=== PATIENT | female | born 1980 | race Caucasian/White ===

== ENCOUNTER 2018-09-01 16:27 | Emergency (ER) | payer OTHER ==
[2018-09-01 16:56] VITALS: BMI 39.6
[2018-09-01] MEDS ORDERED: ALBUTEROL SO4 2.5/IPRATROPIUM 0.5 INH SOL 3 ML VIAL.NEB. NEB ONE ×2 (18:39→18:50)
--- NOTE | 2018-09-01 18:49 | PDOC ---
History of Present Illness - General Chief Complaint: Shortness of Breath Stated Complaint: SOB Time Seen by Provider: 09/01/18 18:39 History Source: Patient Exam Limitations: No Limitations - History of Present Illness Initial Comments: HPI: 38 y/o female presenting to [facility] ER complaining of shortness of breath and coughing for the past several weeks. Symptoms have worsened over the past week. Endorses post emesis vomiting and clear sputum production. Denies fevers, chills , or diaphoresis. Daughter was diagnosed with the flu by PCPs office two weeks ago. Pt was given a Zpack by PCP because of this cough and her daughters positive flu. Pt expressed concern about her symptoms because her sister suddenly and unexpectedly a few months ago. Cause is unknown. No other family members have under similar circumstances. PCP: Dr. Marlo Weber Hx: - Former smoker, stopped 9 weeks ago Medical Hx: - Obesity Past History - Past Medical History Allergies/Adverse Reactions: Allergies Allergy/AdvReac Type Severity Reaction Status Date / Time No Known Allergies Allergy Verified 04/09/13 00:06 Home Medications: Ambulatory Orders No Home Medications 0 dose .ROUTE UTDICT 04/09/13 Albuterol Sulfate Inhaler - [Ventolin Hfa Inhaler -] 1 - 2 inh PO Q4H PRN #1 inhaler 09/01/18 COPD: No - Immunization History Immunization Up to Date: Yes - Suicide/Smoking/Psychosocial Hx Smoking Status: No Smoking History: Never smoked Hx Alcohol Use: No Drug/Substance Use Hx: No Review of Systems - Review of Systems Able to Perform ROS?: Yes Comments:: In addition to that documented in the HPI above, the additional ROS was obtained : Constitutional: Denies fevers or chills ENMT: Denies sore throat CV: Denies chest pain Resp: Per HPI GI: Denies diarrhea : Denies dysuria, hematuria, or discharge *Physical Exam - Vital Signs Last Vital Signs Temp Pulse Resp BP Pulse Ox 98.1 F 97 H 16 122/59 L 96 09/01/18 16:53 09/01/18 16:53 09/01/18 16:53 09/01/18 16:53 09/01/18 16:53 - Physical Exam Comments: Constitutional: Well-developed, well-nourished female in no acute distress or obvious discomfort. Obese body habitus. Found sitting upright on edge of hospital bed. Alert and oriented x4. Answered all questions appropriately and completely. Speech was non-labored, non-pressured. Head: Normocephalic. No obvious external signs of trauma. Eyes: Sclerae white. Ears: Hearing grossly intact. Nose: No nasal discharge. Neck: Supple, trachea is midline. Cardiovascular / Chest: Regular rate and regular rhythm. No murmur, rubs, clicks, or gallops. Peripheral pulses: radial pulses full. Respiratory: Mildly tachypneic but unlabored. Speaking in multi-word responses without pausing. Equal chest rise and fall. Trace wheeze versus upper airway/ crying. No stridor or rhonchi. Gastrointestinal: abdomen is soft, non-tender, non-distended. Neuro: Alert and oriented. Moving all four extremities spontaneously. Skin: Warm, dry, and intact. Psych: Tearful with downward gaze. Moderate Sedation - Procedure Monitoring Vital Signs: Procedure Monitoring Vital Signs Temperature 98.1 F 09/01/18 16:53 Pulse Rate 97 H 09/01/18 16:53 Respiratory Rate 16 09/01/18 16:53 Blood Pressure 122/59 L 09/01/18 16:53 O2 Sat by Pulse Oximetry (%) 96 09/01/18 16:53 ED Treatment Course - LABORATORY CBC & Chemistry Diagram: 09/01/18 19:47 09/01/18 18:49 Medical Decision Making - Medical Decision Making *Reviewed vital signs, nursing notes, and prior visit documentation (if available). 38 y/o female complaining of SOB and chest pain. Daughter diagnosed with flu. Both parent and child are fully vaccinated but did not get flu vaccines this year. Afebrile. Vitals unremarkable for hypotension or tachycardia. Normoxic on room air. Suspect viral URI with overlying anxiety. Low suspicion for asthma exacerbation as pt does not have a h/o of asthma. Low suspicion for ACS. Will obtain EKG, CBC, BMP, Troponin, and CXR. Given DuoNeb x1 then followed with IH saline. EKG: Sinus rhythm with a ventricular rate of 93 bpm. Normal axis. Normal intervals. No ST segment elevation or depression. No hyperacute T waves. No pathologic Q waves. CXR unremarkable for acute cardiopulmonary process per ED wet read. Radiology report pending. CBC revealed very mild leukocytosis without left shift. Suspect reactionary versus viral infection. BMP unremarkable for electrolyte derangement. eGFR >60. Initial troponin not elevated. Low suspicion for ACS. Pt reassessed. Reports feeling much better. No longer tearful. No wheezing on auscultation. Low suspicion for asthma but will prescribe Ventolin PRN. Also encouraged pt to consider purchasing a humidifier. Discussed imaging and laboratory results with pt. Answered all questions. Provided return precautions. Pt expressed verbal understanding and agreement with plan to discharge home with outpatient follow up. *DC/Admit/Observation/Transfer Diagnosis at time of Disposition: Shortness of breath, Coughing - Discharge Dispostion Disposition: HOME Condition at time of disposition: Good Decision to Admit order: No - Prescriptions Prescriptions: Albuterol Sulfate Inhaler - [Ventolin Hfa Inhaler -] 1 - 2 inh PO Q4H PRN #1 inhaler PRN Reason: Wheezing - Referrals Referrals: Hero Sellers MD [Primary Care Provider] - - Patient Instructions Printed Discharge Instructions: DI for Viral Upper Respiratory Infection -- Adult Additional Instructions: You were seen today for coughing, shortness of breath, and chest pain. Your EKG , chest xray, and blood work were normal today. Your symptoms are likely a combination of a viral upper respiratory infection worsened by anxiety and stress. I have sent a prescription for Albuterol to your pharmacy. Take as directed on the package. Do not take more than the recommended dose. Follow up with your primary care doctor within the next 3-4 days. You will need to call to make an appointment. The number is included in this packet. A copy of todays results are attached to this packet. Take it to the appointment so your doctor can review them. Go to the nearest emergency department if your condition worsens or you feel like you need additional emergency evaluation. Print Language: AMHARIC - Post Discharge Activity Forms/Work/School Notes: Back to Work
--- NOTE | 2018-09-01 18:54 | PDOC ---
Attending Attestation - Resident Resident Name: BishopEsa - ED Attending Attestation I have performed the following: I have examined & evaluated the patient, The case was reviewed & discussed with the resident, I agree w/resident's findings & plan, Exceptions are as noted - HPI HPI: 09/01/18 20:18 38-year-old female with no past medical history presents with chest tightness. Approximately 3 weeks ago, patient had a positive sick contact with her daughter having influenza. Patient reports to me that she called her doctor for upper respiratory infection symptoms and was prescribed azithromycin, not Tamiflu. The patient reported taking her antibiotics check resulted in gastritis but reported no improvement of her upper respiratory infection symptoms. Since then, the patient has been having intermittent chest tightness and the ultimate. She still plains of chest congestion, productive cough. States that the symptoms have persisted. Because of this, the patient can the ER. Denies any family history of sudden or cardiac disease. Patient has a intermittent smoking history that she recently stopped. - Physicial Exam PE: 09/01/18 20:24 GENERAL: Awake, alert, and fully oriented, in no acute distress HEAD: No signs of trauma EYES: EOMI, sclera anicteric, conjunctiva clear ENT: Auricles normal inspection, hearing grossly normal, nares patent, Moist mucosa NECK: Normal ROM, supple LUNGS: Breath sounds equal, clear to auscultation bilaterally. No wheezes, and no crackles HEART: Regular rate and rhythm, normal S1 and S2, no murmurs, rubs or gallops ABDOMEN: Soft, nontender, No guarding, no rebound. No masses EXTREMITIES: Normal range of motion, no edema. No clubbing or cyanosis. No cords, erythema, or tenderness NEUROLOGICAL: Cranial nerves II through XII grossly intact. Normal speech SKIN: Warm, Dry, normal turgor, no rashes or lesions noted. - Medical Decision Making 09/01/18 20:25 Vital Signs Temp Pulse Resp BP Pulse Ox 98.1 F 97 H 16 122/59 L 96 09/01/18 16:53 09/01/18 16:53 09/01/18 16:53 09/01/18 16:53 09/01/18 16:53 The patient's chest tightness and URI symptoms is likely persistence of her viral syndrome/influenza. I have low suspicion for ACS. Will however send one troponin. ECG is reassuring. Pt reports that saline nebulizers here helped tremendously. If lab workup including troponin is negative, pt can be d/c with supportive care 09/01/18 20:35 Chest xray reviewed by me, pending official radiology read. No acute findings. Heart Score/ECG Review #1 ECG reviewed & interpreted by me at: 16:40 09/01/18 18:53 NSR 93, no std/karla, normal axis, normal intervals, QTC 412 msec
[2018-09-01] MEDS ORDERED: SODIUM CHLORIDE FOR INHALATION 3 ML VIAL.NEB IH ONE (19:53)
[2018-09-01 20:27] LABS: ANION GAP 8 MMOL/L (8-16); BLOOD UREA NITROGEN 10 mg/dL (7-18); CALCIUM 8.5 mg/dL (8.5-10.1); CHLORIDE 105 mmol/L (98-107); CO2 24 mmol/L (21-32); CREATININE 0.8 mg/dL (0.55-1.3); GLUCOSE,RANDOM 104 mg/dL (74-106); POTASSIUM 4.3 mmol/L (3.5-5.1); SODIUM 137 mmol/L (136-145)
[2018-09-01 20:28] LABS: BASO % 0.4 % (0-2.0); EOS % 3.7 % (0-4.5); HEMATOCRIT 41.4 % (32.4-45.2); HEMOGLOBIN 13.9 GM/dL (10.7-15.3); LYMPH % 21.4 % (8-40); MCH 26.9 pg (25.7-33.7); MCHC 33.6 g/dl (32.0-36.0); MEAN CELL VOLUME 80.2 fl (80-96); MEAN PLT VOLUME 9.5 fl (7.5-11.1); MONO % 4.7 % (3.8-10.2); NEUT % 69.8 % (42.8-82.8); PLATELET COUNT 254 K/MM3 (134-434); RBC 5.16 M/mm3 (3.60-5.2); WHITE BLOOD COUNT 13.3 K/mm3 (4.0-10.0)
[2018-09-01 21:59] VITALS: BP 121/78; PULSE 101; TEMP 98.2
--- NOTE | 2018-09-04 11:01 | EKG ---
Test Reason : Blood Pressure : / mmHG Vent. Rate : 093 BPM Atrial Rate : 093 BPM P-R Int : 128 ms QRS Dur : 078 ms QT Int : 332 ms P-R-T Axes : 057 086 051 degrees QTc Int : 412 ms NORMAL SINUS RHYTHM NORMAL ECG NO PREVIOUS ECGS AVAILABLE Confirmed by PATIENCE SILVERIO MD ([id number]) on 09/04/2018 11:01:25 AM Referred By: Confirmed By:PATIENCE SILVERIO MD
== END 2018-09-01 21:59 | disposition home or self-care (01) ==
LOC: JER 16:27
PROC: 3E0F7GC Introduction of Other Therapeutic Substance into Respiratory Tract, Via Natural or Artificial Opening (ICD-10-PCS; principal; 2018-09-01)
PROC: 3E0F7GC Introduction of Other Therapeutic Substance into Respiratory Tract, Via Natural or Artificial Opening (ICD-10-PCS; 2018-09-01)
DX: J06.9 Acute upper respiratory infection, unspecified (principal); B97.89 Other viral agents as the cause of diseases classified elsewhere
CPT/HCPCS: 36415; 71046-TC-FY; 80048; 84484; 84703; 85025; 93005; 93010; 99282-25

== ENCOUNTER 2019-08-16 01:21 | Inpatient (IN) | payer OTHER ==
[2019-08-16] MEDS ORDERED: MAGNESIUM SULF 50% (8.12 MEQ/2 ML-1 GM VIAL) IVPB ONE (01:51)
[2019-08-16] MEDS ORDERED: ALBUTEROL SO4 2.5/IPRATROPIUM 0.5 INH SOL 3 ML VIAL.NEB. NEB ONE ×5 (01:51→15:11)
[2019-08-16] MEDS ORDERED: methylPREDNISolone NA SUCC 125 MG/2 ML VIAL IVPUSH ONE (01:51)
[2019-08-16 01:52] VITALS: BMI 49.4
--- NOTE | 2019-08-16 01:52 | PDOC ---
History of Present Illness - General Chief Complaint: Shortness of Breath Stated Complaint: DIFFICULTY BREATHING Time Seen by Provider: 08/16/19 01:49 - History of Present Illness Initial Comments: 08/16/19 03:20 The patient is a 39 year old female with a history of asthma who presents for evaluation of shortness of breath. The patient reports a several day history of worsening shortness of breath and wheezing not relieved by home albuterol treatments prompting her presentation to the ED for further evaluation. She notes chest tightness as well and reports having a similar presentation 1 year ago. She denies any prior hospitalizations, steroid use, or intubations. She otherwise denies fevers, chills, nausea, vomiting, abdominal pain, or changes with urination or bowel movements. Past History - Past Medical History Allergies/Adverse Reactions: Allergies Allergy/AdvReac Type Severity Reaction Status Date / Time No Known Allergies Allergy Verified 08/16/19 01:52 Home Medications: Ambulatory Orders Albuterol Sulfate Inhaler - [Ventolin Hfa Inhaler -] 1 - 2 inh PO Q4H PRN #1 inhaler 09/01/18 COPD: No - Immunization History Immunization Up to Date: Yes - Psycho Social/Smoking Cessation Hx Smoking Status: No Smoking History: Never smoked Hx Alcohol Use: Yes Drug/Substance Use Hx: No Review of Systems - Review of Systems Comments:: 08/16/19 03:23 Constitutional: No fevers, chills, fatigue, malaise HEENT: No Rhinorrhea, nasal congestion, visual changes Cardiovascular: No chest pain, syncope, palpitations, lightheadedness Respiratory: Cough, SOB, No Hemoptysis, Gastrointestinal: No Abdominal pain, Nausea, Vomiting, Constipation, Diarrhea, Melena Genitourinary: No Dysuria, Frequency, Urgency, Hesitancy, Hematuria, Flank pain Musculoskeletal: No Myalgia, arthralgia Skin: No rashes, itching, bruising, pallor Neurologic: No Headache, Dizziness, Numbness, Weakness, or Tingling Psychiatric: No Hallucinations. No SI or HI *Physical Exam - Vital Signs Last Vital Signs Temp Pulse Resp BP Pulse Ox 98.0 F 103 H 24 H 132/75 92 L 08/16/19 01:25 08/16/19 01:25 08/16/19 01:25 08/16/19 01:25 08/16/19 01:25 - Physical Exam 08/16/19 03:24 General Appearance: Nourished. No Apparent Distress HEENT: EOMI, MENDY. No Pharyngeal Erythema, Tonsillar Exudate, Tonsillar Erythema Neck: No Cervical Lymphadenopathy Respiratory/Chest: Diffuse expiratory wheezing with poor air movement and prolonged expiration noted on exam. No Crackles, Rales, Rhonchi, Cardiovascular: Regular Rhythm, Regular Rate. No Murmur, Gallops, Rubs Gastrointestinal/Abdominal: Normal Bowel Sounds, Soft. No Guarding, Rebound, Tenderness Musculoskeletal: No CVA Tenderness Extremity: Normal Capillary Refill Integumentary: Normal Color, Dry, Warm Neurologic: Fully Oriented, Alert, Normal Mood/Affect, Normal Response, Heart Score/ECG Review #1 ECG reviewed & interpreted by me at: 03:24 08/16/19 03:24 HR 72 NH 126 QRS 84 QTc 413 Normal Sinus Rhythm No Acute ST Changes ED Treatment Course - LABORATORY CBC & Chemistry Diagram: 08/16/19 01:54 08/16/19 01:54 - RADIOLOGY Radiology Studies Ordered: Category Date Time Status CHEST X-RAY PORTABLE* [RAD] Stat Radiology 08/16/19 01:50 Ordered Medical Decision Making - Medical Decision Making 08/16/19 03:25 The patient is a 39 year old female with a history of asthma who presents for evaluation of shortness of breath. Given the patient's history and physical exam, it is likely the patient's symptoms are due to a severe asthma exacerbation. We will obtain a cbc, cmp, troponin, ekg, chest plain film to evaluate further. We will treat with duonebs, solumedrol, and magnesium and continue to monitor and reassess while here in the ED. 08/16/19 04:05 CBC demonstrates a wbc to 13. CMP, troponin were unremarkable. Chest plain film did not demonstrate any acute pathology. The patient reports mild improvement in her symptoms but continues to remain symptomatic with significant wheezing on exam. She will require admission for further monitoring and management. Discharge - Discharge Information Problems reviewed: Yes Clinical Impression/Diagnosis: Shortness of breath, Coughing Condition: Fair - Admission Yes - Follow up/Referral - Patient Discharge Instructions - Post Discharge Activity
[2019-08-16] MEDS ORDERED: methylPREDNISolone NA SUCC 125 MG/2 ML VIAL ONE (01:57)
[2019-08-16] MEDS ORDERED: MAGNESIUM 1GM/D5W - 2 GM/200 ML IVPB IVPB ONE (01:57)
[2019-08-16 02:23] LABS: BASO % 1.1 % (0-2.0); EOS % 6.7 % (0-4.5); HEMOGLOBIN 12.6 GM/dL (10.7-15.3); LYMPH % 24.7 % (8-40); MCH 25.6 pg (25.7-33.7); MCHC 32.4 g/dl (32.0-36.0); MEAN CELL VOLUME 79.3 fl (80-96); MEAN PLT VOLUME 9.7 fl (7.5-11.1); NEUT % 59.5 % (42.8-82.8); PLATELET COUNT 271 K/MM3 (134-434); RBC 4.91 M/mm3 (3.60-5.2); RDW 15.3 % (11.6-15.6); WHITE BLOOD COUNT 13.1 K/mm3 (4.0-10.0)
[2019-08-16 02:27] LABS: EPI CELLS 4.2 /HPF (0-5/HPF); HYALINE CASTS 3 /lpf (0-8); PH,URINE 5.5 (5.0-8.0); URINE APPEARANCE CLEAR; URINE BACTERIA 131.6 /hpf (NEGATIVE); URINE BILIRUBIN NEGATIVE (NEGATIVE); URINE COLOR YELLOW; URINE GLUCOSE (UA) NEGATIVE (NEGATIVE); URINE KETONE NEGATIVE (NEGATIVE); URINE LEUK ESTERASE NEGATIVE (NEGATIVE); URINE NITRITE NEGATIVE (NEGATIVE); URINE PROTEIN NEGATIVE (NEGATIVE); URINE WBC 2 /hpf (0-5)
--- NOTE | 2019-08-16 02:41 | PDOC ---
Attending Attestation - Resident Resident Name: Willie Goyal - ED Attending Attestation I have performed the following: I have examined & evaluated the patient, The case was reviewed & discussed with the resident, I agree w/resident's findings & plan - HPI HPI: 08/16/19 02:40 see resident hpi - Physicial Exam PE: 08/16/19 02:40 see resident exam - Critical Care Time Total Critical Care Time: 40 Critical Care Statement: The care of this patient involved high complexity decision making to prevent further life threatening deterioration of the patient 's condition and/or to evaluate & treat vital organ system(s) failure or risk of failure. - Medical Decision Making 08/16/19 02:40 39-year-old female with history of asthma and morbid obesity, wheezing unresponsive to home nebulizer treatments Patient with increased work of breathing and moderate distress on arrival Solu-Medrol 125 mg, magnesium 2 g and DuoNeb x3 initiated Due to increased work of breathing, respiratory distress and length of illness will hold at minimum for observation unless markedly improved in the emergency department
[2019-08-16 02:56] LABS: ALBUMIN 3.4 g/dl (3.4-5.0); ALK PHOS 90 U/L (45-117); ANION GAP 6 MMOL/L (8-16); BILIRUBIN,TOTAL 0.3 mg/dL (0.2-1); BLOOD UREA NITROGEN 16.6 mg/dL (7-18); CALCIUM 8.4 mg/dL (8.5-10.1); CHLORIDE 109 mmol/L (98-107); CO2 25 mmol/L (21-32); CREATININE 0.8 mg/dL (0.55-1.3); GLUCOSE,RANDOM 105 mg/dL (74-106); POTASSIUM 4.6 mmol/L (3.5-5.1); SGOT/AST 29 U/L (15-37); SGPT/ALT 29 U/L (13-61); SODIUM 139 mmol/L (136-145); TOT PROT 6.8 g/dl (6.4-8.2)
--- NOTE | 2019-08-16 04:24 | HP ---
Admitting History and Physical - Smoking History Smoking history: Never smoked - Alcohol/Substance Use Hx Alcohol Use: Yes Home Medications - Allergies Allergies/Adverse Reactions: Allergies Allergy/AdvReac Type Severity Reaction Status Date / Time No Known Allergies Allergy Verified 08/16/19 01:52 - Home Medications Home Medications: Ambulatory Orders Albuterol Sulfate Inhaler - [Ventolin Hfa Inhaler -] 1 - 2 inh PO Q4H PRN #1 inhaler 09/01/18 Physical Examination Vital Signs: Vital Signs Temperature 98.0 F 08/16/19 01:25 Pulse Rate 103 H 08/16/19 01:25 Respiratory Rate 24 H 08/16/19 01:25 Blood Pressure 132/75 08/16/19 01:25 O2 Sat by Pulse Oximetry (%) 92 L 08/16/19 01:25 Labs: CBC, BMP 08/16/19 01:54 08/16/19 01:54 ATTENDING PHYSICIAN STATEMENT I saw and evaluated the patient. I reviewed the resident's note and discussed the case with the resident. I agree with the resident's findings and plan as documented. SUBJECTIVE: OBJECTIVE: ASSESSMENT AND PLAN:
--- NOTE | 2019-08-16 04:53 | HP ---
<DeriantiffanylucioJessee - Last Filed: 08/16/19 06:07> CHIEF COMPLAINT: shortness of breath PCP: HISTORY OF PRESENT ILLNESS: Patient is a 39 year old female with no reported medical history presents with complaint of shortness of breath. Patient endorses symptoms have been ongoing for over the past year. Shortness of breath seems to be exacerbated at rest, in addition to any physical exertion. She reports symptoms are associated with non productive cough. Patient felt worsening shortness of breath this afternoon approx 7PM after walking home with her daughter. She had attempted usign her daughter's Ventolin pump over 10 times without significant improvement. Denies recent illness or sick contacts. Patient denies prior formal diagnosis of Asthma, has not seen associate entertainment editor. Denies prior intubation. Admits wheezing , with associated chest tightness from coughing. Denies subjective fevers, chills, palpitations, abdominal pain, nausea, vomiting. [employer]; , one miscarriage. Daughter born via C-secition. LMP July 23. ER course was notable for: (1) Medrol 125mg IV, Duonebs (2) (3) Recent Travel: denies PAST MEDICAL HISTORY: denies PAST SURGICAL HISTORY: [birth year], appedectomy at 13 years old Social History: Lives with daughter. Works as telecom network manager. Independent in activities daily living. Smoking: Former smoker since 18 years old; smoked approx 2-3 cigarettes per day intermittently. Quit approx 1 year ago. Alcohol: Admits 2-3 glasses of wine on social occasion Drugs: Denies illicit drug use Allergies No Known Allergies Allergy (Verified 08/16/19 01:52) HOME MEDICATIONS: Home Medications Medication Instructions Recorded Albuterol Sulfate Inhaler - 1 - 2 inh PO Q4H PRN #1 inhaler 09/01/18 [Ventolin Hfa Inhaler -] REVIEW OF SYSTEMS CONSTITUTIONAL: Absent: fever, chills, diaphoresis, generalized weakness, malaise, loss of appetite, weight change HEENT: Absent: rhinorrhea, nasal congestion, throat pain, throat swelling, difficulty swallowing, mouth swelling, ear pain, eye pain, visual changes CARDIOVASCULAR: Absent: chest pain, syncope, palpitations, irregular heart rate, lightheadedness , peripheral edema RESPIRATORY: Admits: cough, shortness of breath, dyspnea with exertion. Absent: orthopnea, wheezing, stridor, hemoptysis GASTROINTESTINAL: Absent: abdominal pain, abdominal distension, nausea, vomiting, diarrhea, constipation, melena, hematochezia GENITOURINARY: Absent: dysuria, frequency, urgency, hesitancy, hematuria, flank pain, genital pain MUSCULOSKELETAL: Absent: myalgia, arthralgia, joint swelling, back pain, neck pain SKIN: Absent: rash, itching, pallor HEMATOLOGIC/IMMUNOLOGIC: Absent: easy bleeding, easy bruising, lymphadenopathy, frequent infections ENDOCRINE: Absent: unexplained weight gain, unexplained weight loss, heat intolerance, cold intolerance NEUROLOGIC: Absent: headache, focal weakness or paresthesias, dizziness, unsteady gait, seizure, mental status changes, bladder or bowel incontinence PSYCHIATRIC: Absent: anxiety, depression, suicidal or homicidal ideation, hallucinations. PHYSICAL EXAMINATION Vital Signs - 24 hr 08/16/19 01:25 Temperature 98.0 F Pulse Rate 103 H Respiratory 24 H Rate Blood Pressure 132/75 O2 Sat by Pulse 92 L Oximetry (%) GENERAL: The patient is awake, alert, and fully oriented, in no acute distress. HEAD: Normocephalic, atraumatic. EYES: PERRL, extraocular movements intact, sclera anicteric, conjunctiva clear. ENT: Oropharynx clear, without erythema or exudates. Moist mucous membranes. NECK: Trachea midline, full range of motion. Supple without lymphadenopathy. LUNGS: Good inspiratory effort, poor air entry bilaterally. Inspiratory and end expiratory wheezing auscultated bilaterally. No accessory muscle use. HEART: Regular rate and rhythm. S1, S2 without murmur, rub or gallop. ABDOMEN: Obese abdomen. Soft, nondistended, nontender to light and deep palpation x4 quadrants. No rebound tenderness, no guarding. Normoactive bowel sounds x4 quadrants. No hepatosplenomegaly, no masses appreciated. EXTREMITIES: 2+ radial, dorsalis pedis pulses bilaterally. Warm, well-perfused. No lower extremity edema bilaterally. NEUROLOGICAL: Cranial nerves II through XII grossly intact. Normal speech. No gross focal deficits. PSYCH: Normal mood, normal affect upon my encounter. SKIN: Warm, dry. Laboratory Results - last 24 hr 08/16/19 08/16/19 08/16/19 01:54 01:54 01:54 WBC 13.1 H RBC 4.91 Hgb 12.6 Hct 39.0 MCV 79.3 L MCH 25.6 L MCHC 32.4 RDW 15.3 Plt Count 271 MPV 9.7 Absolute Neuts (auto) 7.8 Neutrophils % 59.5 Lymphocytes % 24.7 Monocytes % 8.0 Eosinophils % 6.7 H D Basophils % 1.1 Nucleated RBC % 0 Sodium 139 Potassium 4.6 Chloride 109 H Carbon Dioxide 25 Anion Gap 6 L BUN 16.6 Creatinine 0.8 Est GFR (CKD-EPI)AfAm 108.39 Est GFR (CKD-EPI)NonAf 93.52 Random Glucose 105 Calcium 8.4 L Total Bilirubin 0.3 AST 29 ALT 29 Alkaline Phosphatase 90 Creatine Kinase 187 Creatine Kinase Index 1.8 CK-MB (CK-2) 3.4 Troponin I < 0.02 Total Protein 6.8 Albumin 3.4 Urine Color Urine Appearance Urine pH Ur Specific [place] Urine Protein Urine Glucose (UA) Urine Ketones Urine Blood Urine Nitrite Urine Bilirubin Urine Urobilinogen Ur Leukocyte Esterase Urine WBC (Auto) Urine Casts (Auto) U Epithel Cells (Auto) Urine Bacteria (Auto) Urine HCG, Qual Negative 08/16/19 01:54 WBC RBC Hgb Hct MCV MCH MCHC RDW Plt Count MPV Absolute Neuts (auto) Neutrophils % Lymphocytes % Monocytes % Eosinophils % Basophils % Nucleated RBC % Sodium Potassium Chloride Carbon Dioxide Anion Gap BUN Creatinine Est GFR (CKD-EPI)AfAm Est GFR (CKD-EPI)NonAf Random Glucose Calcium Total Bilirubin AST ALT Alkaline Phosphatase Creatine Kinase Creatine Kinase Index CK-MB (CK-2) Troponin I Total Protein Albumin Urine Color Yellow Urine Appearance Clear Urine pH 5.5 Ur Specific [place] 1.025 Urine Protein Negative Urine Glucose (UA) Negative Urine Ketones Negative Urine Blood Trace Urine Nitrite Negative Urine Bilirubin Negative Urine Urobilinogen 1.0 Ur Leukocyte Esterase Negative Urine WBC (Auto) 2 Urine Casts (Auto) 3 U Epithel Cells (Auto) 4.2 Urine Bacteria (Auto) 131.6 Urine HCG, Qual ASSESSMENT/PLAN: Patient is a 39 year old female with no reported medical history presents with complaint of shortness of breath. Reactive airway disease -Chest radiograph reveals no acute infiltrate (upon my reading). will follow final radiologist read. -Received Medrol 125mg IV in ED. Will continue Medrol 40mg Q8 hours IV -DuoNebs standing QID, and Albuterol nebulizer Q4 hours PRN -Sudden onset dyspnea concerning for PE however Wells score is 0. Will obtain D -dimer. -Follow ABG -Influenza swab FEN -No IV fluids indicated -Follow BMP -Regular diet Prophylaxis -Lovenox 40mg subq daily Disposition -Admit to Medical Surgical floor ATTENDING PHYSICIAN STATEMENT I saw and evaluated the patient. I reviewed the resident's note and discussed the case with the resident. I agree with the resident's findings and plan as documented. SUBJECTIVE: OBJECTIVE: ASSESSMENT AND PLAN: <Torres Francis - Last Filed: 08/16/19 06:20> CHIEF COMPLAINT: PCP: HISTORY OF PRESENT ILLNESS: ER course was notable for: (1) (2) (3) Recent Travel: PAST MEDICAL HISTORY: PAST SURGICAL HISTORY: Social History: Smoking: Alcohol: Drugs: Allergies No Known Allergies Allergy (Verified 08/16/19 01:52) HOME MEDICATIONS: Home Medications Medication Instructions Recorded Albuterol Sulfate Inhaler - 1 - 2 inh PO Q4H PRN #1 inhaler 09/01/18 [Ventolin Hfa Inhaler -] REVIEW OF SYSTEMS CONSTITUTIONAL: Absent: fever, chills, diaphoresis, generalized weakness, malaise, loss of appetite, weight change HEENT: Absent: rhinorrhea, nasal congestion, throat pain, throat swelling, difficulty swallowing, mouth swelling, ear pain, eye pain, visual changes CARDIOVASCULAR: Absent: chest pain, syncope, palpitations, irregular heart rate, lightheadedness , peripheral edema RESPIRATORY: Absent: cough, shortness of breath, dyspnea with exertion, orthopnea, wheezing, stridor, hemoptysis GASTROINTESTINAL: Absent: abdominal pain, abdominal distension, nausea, vomiting, diarrhea, constipation, melena, hematochezia GENITOURINARY: Absent: dysuria, frequency, urgency, hesitancy, hematuria, flank pain, genital pain MUSCULOSKELETAL: Absent: myalgia, arthralgia, joint swelling, back pain, neck pain SKIN: Absent: rash, itching, pallor HEMATOLOGIC/IMMUNOLOGIC: Absent: easy bleeding, easy bruising, lymphadenopathy, frequent infections ENDOCRINE: Absent: unexplained weight gain, unexplained weight loss, heat intolerance, cold intolerance NEUROLOGIC: Absent: headache, focal weakness or paresthesias, dizziness, unsteady gait, seizure, mental status changes, bladder or bowel incontinence PSYCHIATRIC: Absent: anxiety, depression, suicidal or homicidal ideation, hallucinations. PHYSICAL EXAMINATION Vital Signs - 24 hr 08/16/19 08/16/19 01:25 05:05 Temperature 98.0 F 98.2 F Pulse Rate 103 H Pulse Rate [ 93 H Apical] Respiratory 24 H 19 Rate Blood Pressure 132/75 Blood Pressure 136/72 [Right Arm] O2 Sat by Pulse 92 L 99 Oximetry (%) GENERAL: Awake, alert, and fully oriented, in no acute distress. HEAD: Normal with no signs of trauma. EYES: Pupils equal, round and reactive to light, extraocular movements intact, sclera anicteric, conjunctiva clear. No lid lag. EARS, NOSE, THROAT: Ears normal, nares patent, oropharynx clear without exudates. Moist mucous membranes. NECK: Normal range of motion, supple without lymphadenopathy, JVD, or masses. LUNGS: Breath sounds equal, clear to auscultation bilaterally. No wheezes, and no crackles. No accessory muscle use. HEART: Regular rate and rhythm, normal S1 and S2 without murmur, rub or gallop. ABDOMEN: Soft, nontender, not distended, normoactive bowel sounds, no guarding, no rebound, no masses. No hepatomegaly or splenomegaly. MUSCULOSKELETAL: Normal range of motion at all joints. No bony deformities or tenderness. No CVA tenderness. UPPER EXTREMITIES: 2+ pulses, warm, well-perfused. No cyanosis. No clubbing. No peripheral edema. LOWER EXTREMITIES: 2+ pulses, warm, well-perfused. No calf tenderness. No peripheral edema. NEUROLOGICAL: Cranial nerves II-XII intact. Normal speech. Normal gait. PSYCHIATRIC: Cooperative. Good eye contact. Appropriate mood and affect. SKIN: Warm, dry, normal turgor, no rashes or lesions noted, normal capillary refill. Laboratory Results - last 24 hr 08/16/19 08/16/19 08/16/19 01:54 01:54 01:54 WBC 13.1 H RBC 4.91 Hgb 12.6 Hct 39.0 MCV 79.3 L MCH 25.6 L MCHC 32.4 RDW 15.3 Plt Count 271 MPV 9.7 Absolute Neuts (auto) 7.8 Neutrophils % 59.5 Lymphocytes % 24.7 Monocytes % 8.0 Eosinophils % 6.7 H D Basophils % 1.1 Nucleated RBC % 0 Sodium 139 Potassium 4.6 Chloride 109 H Carbon Dioxide 25 Anion Gap 6 L BUN 16.6 Creatinine 0.8 Est GFR (CKD-EPI)AfAm 108.39 Est GFR (CKD-EPI)NonAf 93.52 Random Glucose 105 Calcium 8.4 L Total Bilirubin 0.3 AST 29 ALT 29 Alkaline Phosphatase 90 Creatine Kinase 187 Creatine Kinase Index 1.8 CK-MB (CK-2) 3.4 Troponin I < 0.02 Total Protein 6.8 Albumin 3.4 Urine Color Urine Appearance Urine pH Ur Specific [place] Urine Protein Urine Glucose (UA) Urine Ketones Urine Blood Urine Nitrite Urine Bilirubin Urine Urobilinogen Ur Leukocyte Esterase Urine WBC (Auto) Urine Casts (Auto) U Epithel Cells (Auto) Urine Bacteria (Auto) Urine HCG, Qual Negative 08/16/19 01:54 WBC RBC Hgb Hct MCV MCH MCHC RDW Plt Count MPV Absolute Neuts (auto) Neutrophils % Lymphocytes % Monocytes % Eosinophils % Basophils % Nucleated RBC % Sodium Potassium Chloride Carbon Dioxide Anion Gap BUN Creatinine Est GFR (CKD-EPI)AfAm Est GFR (CKD-EPI)NonAf Random Glucose Calcium Total Bilirubin AST ALT Alkaline Phosphatase Creatine Kinase Creatine Kinase Index CK-MB (CK-2) Troponin I Total Protein Albumin Urine Color Yellow Urine Appearance Clear Urine pH 5.5 Ur Specific [place] 1.025 Urine Protein Negative Urine Glucose (UA) Negative Urine Ketones Negative Urine Blood Trace Urine Nitrite Negative Urine Bilirubin Negative Urine Urobilinogen 1.0 Ur Leukocyte Esterase Negative Urine WBC (Auto) 2 Urine Casts (Auto) 3 U Epithel Cells (Auto) 4.2 Urine Bacteria (Auto) 131.6 Urine HCG, Qual ASSESSMENT/PLAN: Visit type - Emergency Visit Emergency Visit: Yes ED Registration Date: 08/16/19 Care time: The patient presented to the Emergency Department on the above date and was hospitalized for further evaluation of their emergent condition. - New Patient This patient is new to me today: Yes Date on this admission: 08/16/19 - Critical Care Critical Care patient: No ATTENDING PHYSICIAN STATEMENT I saw and evaluated the patient. I reviewed the resident's note and discussed the case with the resident. I agree with the resident's findings and plan as documented.
[2019-08-16 07:54] LABS: HEMOGLOBIN 12.5 GM/dL (10.7-15.3); MCH 25.8 pg (25.7-33.7); MCHC 32.9 g/dl (32.0-36.0); MEAN CELL VOLUME 78.5 fl (80-96); MEAN PLT VOLUME 9.6 fl (7.5-11.1); PLATELET COUNT 244 K/MM3 (134-434); RBC 4.84 M/mm3 (3.60-5.2); WHITE BLOOD COUNT 10.7 K/mm3 (4.0-10.0)
[2019-08-16 08:20] LABS: BLOOD UREA NITROGEN 13.6 mg/dL (7-18); CALCIUM 8.4 mg/dL (8.5-10.1); CREATININE 0.8 mg/dL (0.55-1.3); MAGNESIUM 2.5 mg/dL (1.8-2.4); PHOSPHOROUS 2.4 mg/dL (2.5-4.9); POTASSIUM 4.2 mmol/L (3.5-5.1)
[2019-08-16] MEDS: ALBUTEROL SO4 2.5/IPRATROPIUM 0.5 INH SOL 3 ML VIAL.NEB. NEB SCH ×4 (08:43→22:30)
--- NOTE | 2019-08-16 10:14 | PN ---
Physical Exam: SUBJECTIVE: Patient seen and examined. She says her chest feels tight. She also complains of right flank pain and urinary frequency. OBJECTIVE: Vital Signs Period Temp Pulse Resp BP Sys/Dior Pulse Ox Last 24 Hr 98.0 F-98.2 F 93-103 19-24 132-136/72-75 92-99 GENERAL: The patient is awake, alert, and fully oriented, in mild respiratory distress. LUNGS: Breath sounds equal, few expiratory wheezes, no crackles, no accessory muscle use. HEART: Regular rate and rhythm, S1, S2 without murmur, rub or gallop. ABDOMEN: Obese, soft, nontender, nondistended, normoactive bowel sounds, no guarding, no rebound, no hepatosplenomegaly, no masses. BACK: No CVA tenderness. EXTREMITIES: 2+ pulses, warm, well-perfused, no edema. Laboratory Results - last 24 hr 08/16/19 08/16/19 08/16/19 01:54 01:54 01:54 WBC 13.1 H RBC 4.91 Hgb 12.6 Hct 39.0 MCV 79.3 L MCH 25.6 L MCHC 32.4 RDW 15.3 Plt Count 271 MPV 9.7 Absolute Neuts (auto) 7.8 Neutrophils % 59.5 Lymphocytes % 24.7 Monocytes % 8.0 Eosinophils % 6.7 H D Basophils % 1.1 Nucleated RBC % 0 D-Dimer Sodium 139 Potassium 4.6 Chloride 109 H Carbon Dioxide 25 Anion Gap 6 L BUN 16.6 Creatinine 0.8 Est GFR (CKD-EPI)AfAm 108.39 Est GFR (CKD-EPI)NonAf 93.52 Random Glucose 105 Calcium 8.4 L Phosphorus Magnesium Total Bilirubin 0.3 AST 29 ALT 29 Alkaline Phosphatase 90 Creatine Kinase 187 Creatine Kinase Index 1.8 CK-MB (CK-2) 3.4 Troponin I < 0.02 Total Protein 6.8 Albumin 3.4 Urine Color Urine Appearance Urine pH Ur Specific [place] Urine Protein Urine Glucose (UA) Urine Ketones Urine Blood Urine Nitrite Urine Bilirubin Urine Urobilinogen Ur Leukocyte Esterase Urine WBC (Auto) Urine Casts (Auto) U Epithel Cells (Auto) Urine Bacteria (Auto) Urine HCG, Qual Negative Influenza A (Rapid) Influenza B (Rapid) 02/13/20 02/13/20 02/13/20 01:54 06:10 06:58 WBC 10.7 H RBC 4.84 Hgb 12.5 Hct 38.0 MCV 78.5 L MCH 25.8 MCHC 32.9 RDW 15.0 Plt Count 244 MPV 9.6 Absolute Neuts (auto) Neutrophils % Lymphocytes % Monocytes % Eosinophils % Basophils % Nucleated RBC % D-Dimer Sodium Potassium Chloride Carbon Dioxide Anion Gap BUN Creatinine Est GFR (CKD-EPI)AfAm Est GFR (CKD-EPI)NonAf Random Glucose Calcium Phosphorus Magnesium Total Bilirubin AST ALT Alkaline Phosphatase Creatine Kinase Creatine Kinase Index CK-MB (CK-2) Troponin I Total Protein Albumin Urine Color Yellow Urine Appearance Clear Urine pH 5.5 Ur Specific [place] 1.025 Urine Protein Negative Urine Glucose (UA) Negative Urine Ketones Negative Urine Blood Trace Urine Nitrite Negative Urine Bilirubin Negative Urine Urobilinogen 1.0 Ur Leukocyte Esterase Negative Urine WBC (Auto) 2 Urine Casts (Auto) 3 U Epithel Cells (Auto) 4.2 Urine Bacteria (Auto) 131.6 Urine HCG, Qual Influenza A (Rapid) Negative Influenza B (Rapid) Negative 08/16/19 08/16/19 06:58 08:50 WBC RBC Hgb Hct MCV MCH MCHC RDW Plt Count MPV Absolute Neuts (auto) Neutrophils % Lymphocytes % Monocytes % Eosinophils % Basophils % Nucleated RBC % D-Dimer 244 Sodium 137 Potassium 4.2 Chloride 108 H Carbon Dioxide 22 Anion Gap 8 BUN 13.6 Creatinine 0.8 Est GFR (CKD-EPI)AfAm 108.39 Est GFR (CKD-EPI)NonAf 93.52 Random Glucose 129 H Calcium 8.4 L Phosphorus 2.4 L Magnesium 2.5 H Total Bilirubin AST ALT Alkaline Phosphatase Creatine Kinase Creatine Kinase Index CK-MB (CK-2) Troponin I Total Protein Albumin Urine Color Urine Appearance Urine pH Ur Specific [place] Urine Protein Urine Glucose (UA) Urine Ketones Urine Blood Urine Nitrite Urine Bilirubin Urine Urobilinogen Ur Leukocyte Esterase Urine WBC (Auto) Urine Casts (Auto) U Epithel Cells (Auto) Urine Bacteria (Auto) Urine HCG, Qual Influenza A (Rapid) Influenza B (Rapid) Active Medications Generic Name Dose Route Start Last Admin Trade Name Freq PRN Reason Stop Dose Admin Albuterol Sulfate 1 amp 08/16/19 04:23 Ventolin 0.083% Nebulizer Soln - NEB RQ4H PRN SHORT OF BREATH/WHEEZING Albuterol/Ipratropium 1 amp 08/16/19 08:00 08/16/19 08:43 Duoneb - NEB 1 amp RQID DIANA Administration Enoxaparin Sodium 40 mg 08/16/19 10:00 Lovenox - SQ DAILY DIANA Methylprednisolone Sodium Succinate 40 mg 08/16/19 10:00 Solu-Medrol - IVPUSH Q8H-IV DIANA ASSESSMENT/PLAN: This is a 39 year old woman with no significant medical history who presented to the ED with shortness of breath. 1. Acute bronchospasm/reactive airway disease - Chest x-ray unremarkable - D-dimer negative - Influenza A/B negative - Continue SoluMedrol, DuoNeb, albuterol nebs as needed - Pulmonary consult 2. Probable MAYRA - Outpatient sleep study 3. Morbid obesity with BMI 49.4 4. Right flank pain, urinary frequency - UA (+) bacteria, (-) leukocyte esterase - Repeat UA Visit type - Emergency Visit Emergency Visit: Yes ED Registration Date: 08/16/19 Care time: The patient presented to the Emergency Department on the above date and was hospitalized for further evaluation of their emergent condition. - New Patient This patient is new to me today: Yes Date on this admission: 08/16/19 - Critical Care Critical Care patient: No - Discharge Referral Referred to [facility] Med [facility] No
[2019-08-16] MEDS ORDERED: IBUPROFEN 400 MG TABLET (FP) PO PRN (10:15)
[2019-08-16] MEDS ORDERED: ACETAMINOPHEN 325 MG TABLET (FP) PO PRN (10:16)
[2019-08-16] MEDS ORDERED: methylPREDNISolone NA SUCC 40 MG/1 ML VIAL ONE (10:28)
[2019-08-16] MEDS ORDERED: IBUPROFEN 400 MG TABLET (FP) PO ONE ×2 (10:41→14:26)
[2019-08-16] MEDS: ENOXAPARIN NA (PORCINE) 40 MG/0.4 ML DISP.SYRIN SQ SCH (10:43)
[2019-08-16] MEDS: methylPREDNISolone NA SUCC 40 MG/1 ML VIAL IVPUSH SCH ×2 (10:44→18:46)
--- NOTE | 2019-08-16 13:28 | CON.PULM ---
Consult Consult Specialty:: PULM/CCM Referred by:: Hospitalist Reason for Consultation:: SOB - History of Present Illness Chief Complaint: SOB History of Present Illness: 39 F, previous Pulmonary history. Admitted via the ER progressive shortness of breath. Did have some URI symptoms for a few days. No travel history or sick contacts. She does report some wheezing. No fever or chills. No hemoptysis. She does snore and have risk factors for OSAS. CXR: No acute pathology - History Source History Provided By: Patient Limitations to Obtaining History: No Limitations - Past Medical History Pulmonary: Yes: Bronchitis. No: Asthma, Cancer, COPD, O2 Dependent, Pneumonia, Previously Intubated, Pulmonary Embolus, Pulmonary Fibrosis, Sleep Apnea - Alcohol/Substance Use Hx Alcohol Use: Yes - Smoking History Smoking history: Never smoked Home Medications - Allergies Allergies/Adverse Reactions: Allergies Allergy/AdvReac Type Severity Reaction Status Date / Time No Known Allergies Allergy Verified 08/16/19 01:52 - Home Medications Home Medications: Ambulatory Orders Albuterol Sulfate Inhaler - [Ventolin Hfa Inhaler -] 1 - 2 inh PO Q4H PRN #1 inhaler 09/01/18 Review of Systems - Review of Systems Constitutional: reports: Malaise. denies: Chills, Fever, Night Sweats, Unintentional Wgt. Loss Eyes: reports: No Symptoms HENT: reports: No Symptoms Neck: reports: No Symptoms Cardiovascular: reports: Shortness of Breath. denies: Chest Pain, Edema, Palpitations Respiratory: reports: Cough, Snoring, SOB, SOB on Exertion, Wheezing. denies: Hemoptysis, Orthopnea, PND Gastrointestinal: reports: No Symptoms Genitourinary: reports: No Symptoms Breasts: reports: No Symptoms Reported Musculoskeletal: reports: No Symptoms Integumentary: reports: No Symptoms Neurological: reports: No Symptoms Endocrine: reports: No Symptoms Hematology/Lymphatic: reports: No Symptoms Psychiatric: reports: No Symptoms Physical Exam Vital Sings: Vital Signs Temperature 98.2 F 08/16/19 10:23 Pulse Rate 83 08/16/19 10:23 Respiratory Rate 18 08/16/19 10:23 Blood Pressure 110/56 L 08/16/19 10:23 O2 Sat by Pulse Oximetry (%) 92 L 08/16/19 10:23 Constitutional: Yes: Mild Distress, Obese Eyes: Yes: Conjunctiva Clear, EOM Intact HENT: Yes: Atraumatic, Normocephalic Neck: Yes: Supple, Trachea Midline Cardiovascular: Yes: Regular Rate and Rhythm Respiratory: Yes: Cough, Diminished, On Nasal O2, SOB, SOB on Exertion, Tachypnea, Wheezes. No: Accessory Muscle Use, Rales, Rhonchi, Stridor ...Inspection: Yes: WNL ...Clubbing: No Gastrointestinal: Yes: Normal Bowel Sounds, Soft Renal/: Yes: WNL Musculoskeletal: Yes: WNL Extremities: Yes: WNL Edema: No Peripheral Pulses WNL: Yes Integumentary: Yes: WNL Neurological: Yes: WNL, Alert, Oriented ...Motor Strength: WNL Psychiatric: Yes: WNL, Alert, Oriented Labs: CBC, BMP 08/16/19 06:58 08/16/19 06:58 Imaging - Results Chest X-ray: Report Reviewed, Image Reviewed Problem List - Problems (1) Acute bronchospasm Code(s): J98.01 - ACUTE BRONCHOSPASM (2) Coughing Code(s): R05 - COUGH (3) Shortness of breath Code(s): R06.02 - SHORTNESS OF BREATH (4) Morbid obesity Code(s): E66.01 - MORBID (SEVERE) OBESITY DUE TO EXCESS CALORIES Assessment/Plan Medrol BD TX standing and PRN Supplemental O2 as needed Monitor off ABX Sleep screen VTE prophylaxis No smoking Outpatient PFTs Will follow Thank you. Dr Hernadez MAYRA Screen - MAYRA History Previously diagnosed with Sleep Apnea: No If Yes, currently using CPAP to treat your MAYRA: No - SNORING Do you snore loudly (enough to be heard thru closed doors)?: Yes - TIRED Do you often feel tired, fatigued, or sleepy during daytime?: Yes - OBSERVED Has anyone observed you stop breathing during your sleep?: Yes - BLOOD PRESSURE Do you have or are being treated for high blood pressure?: No - BMI Answer Y if weight exceeds amount listed for your height: Yes .: HEIGHT & WEIGHT (lbs): 4'10" 167lbs; 4'11" 175 lbs; 5'0" 179lbs;. 5 '1" 185lbs; 5'2" 191lbs; 5'3" 197lbs;. 5'4" 204lbs; 5'5" 210lbs; 5'6" 216lbs;. 5'7" 223lbs; 5'8" 230lbs; 5'9" 237lbs;. 5'10" 243lbs ; 5'11" 250lbs; 6' 258lbs;. 6'1" 265lbs; 6'2" 272lbs; 6'3" 279lbs ;. 6'4" 287lbs; 6'5" 295lbs - AGE Is your age over 50 yrs old?: No - NECK CIRCUMFERENCE Neck Circumference 40cm: Yes - GENDER Male: No - SCORE Total Score: 5 Score Interpretation: High Risk of MAYRA .: Interpretation: Score 0-2: Low Risk MAYRA. Score 3-4: Intermediate Risk MAYRA. Score 5-8: High Risk MAYRA
[2019-08-16] MEDS ORDERED: ALBUTEROL SO4 0.083% IH SOL 2.5 MG/3 ML VIAL.NEB. NEB ONE (14:25)
[2019-08-16] MEDS: IBUPROFEN 400 MG TABLET (FP) PO PRN ×2 (14:39→21:14)
[2019-08-16] MEDS: ALBUTEROL SO4 0.083% IH SOL 2.5 MG/3 ML VIAL.NEB. NEB PRN ×2 (14:39→16:37)
--- NOTE | 2019-08-16 15:13 | EKG ---
Test Reason : Blood Pressure : / mmHG Vent. Rate : 072 BPM Atrial Rate : 072 BPM P-R Int : 126 ms QRS Dur : 084 ms QT Int : 378 ms P-R-T Axes : 050 055 024 degrees QTc Int : 413 ms NORMAL SINUS RHYTHM WITH SINUS ARRHYTHMIA NORMAL ECG WHEN COMPARED WITH ECG OF 01-SEP-2018 16:35, NO SIGNIFICANT CHANGE WAS FOUND Confirmed by HARSHA VERDIN MD ([id number]) on 08/16/2019 3:13:36 PM Referred By: Confirmed By:HARSHA VERDIN MD
[2019-08-16 19:15] LABS: PH,URINE 5.5 (5.0-8.0); URINE APPEARANCE CLEAR; URINE BILIRUBIN NEGATIVE (NEGATIVE); URINE COLOR YELLOW; URINE GLUCOSE (UA) NEGATIVE (NEGATIVE); URINE KETONE TRACE (NEGATIVE); URINE LEUK ESTERASE NEGATIVE (NEGATIVE); URINE NITRITE NEGATIVE (NEGATIVE); URINE PROTEIN NEGATIVE (NEGATIVE); URINE UROBILINOGEN 0.2 mg/dL (0.2-1.0)
[2019-08-16] MEDS ORDERED: FLU VACCINE QUAD 60 MCG/0.5 ML (MDV 19-20) IM ONE (20:30)
[2019-08-17] MEDS: methylPREDNISolone NA SUCC 40 MG/1 ML VIAL IVPUSH SCH ×2 (02:01→10:24)
[2019-08-17] MEDS: ALBUTEROL SO4 2.5/IPRATROPIUM 0.5 INH SOL 3 ML VIAL.NEB. NEB SCH ×2 (07:40→11:25)
--- NOTE | 2019-08-17 08:22 | PN ---
Progress Note, Physician History of Present Illness: Patient is a 39 year old female with no reported medical history presents with complaint of shortness of breath. - Current Medication List Current Medications: Active Medications Acetaminophen (Tylenol -) 650 mg PO Q4H PRN PRN Reason: FEVER Albuterol Sulfate (Ventolin 0.083% Nebulizer Soln -) 1 amp NEB RQ4H PRN PRN Reason: SHORT OF BREATH/WHEEZING Last Admin: 08/16/19 16:37 Dose: 1 amp Albuterol/Ipratropium (Duoneb -) 1 amp NEB RQID DIANA Last Admin: 08/17/19 07:40 Dose: 1 amp Enoxaparin Sodium (Lovenox -) 40 mg SQ DAILY DIANA Last Admin: 08/16/19 10:43 Dose: 40 mg Ibuprofen (Motrin -) 400 mg PO Q6H PRN PRN Reason: PAIN LEVEL 1-5 Last Admin: 08/16/19 10:44 Dose: 400 mg Ibuprofen (Motrin -) 800 mg PO Q8H PRN PRN Reason: PAIN LEVEL 6-10 Last Admin: 08/16/19 21:14 Dose: 800 mg Methylprednisolone Sodium Succinate (Solu-Medrol -) 40 mg IVPUSH Q8H-IV DIANA Last Admin: 08/17/19 02:01 Dose: 40 mg - Objective Vital Signs: Vital Signs Temperature 98.2 F 08/17/19 06:00 Pulse Rate 74 08/17/19 06:00 Respiratory Rate 18 08/17/19 06:00 Blood Pressure 112/62 08/17/19 06:00 O2 Sat by Pulse Oximetry (%) 95 08/16/19 21:00 Labs: CBC, BMP 08/16/19 06:58 08/16/19 06:58 Problem List - Problems (1) Reactive airway disease Code(s): J45.909 - UNSPECIFIED ASTHMA, UNCOMPLICATED (2) Prophylactic measure Code(s): Z29.9 - ENCOUNTER FOR PROPHYLACTIC MEASURES, UNSPECIFIED (3) Morbid obesity with BMI of 45.0-49.9, adult Code(s): E66.01 - MORBID (SEVERE) OBESITY DUE TO EXCESS CALORIES; Z68.42 - BODY MASS INDEX (BMI) 45.0-49.9, ADULT (4) Shortness of breath Code(s): R06.02 - SHORTNESS OF BREATH
[2019-08-17 09:09] LABS: BASO % 0.4 % (0-2.0); HEMATOCRIT 38.5 % (32.4-45.2); HEMOGLOBIN 12.5 GM/dL (10.7-15.3); LYMPH % 10.3 % (8-40); MCH 25.6 pg (25.7-33.7); MCHC 32.6 g/dl (32.0-36.0); MEAN CELL VOLUME 78.5 fl (80-96); MEAN PLT VOLUME 9.4 fl (7.5-11.1); MONO % 2.9 % (3.8-10.2); NEUT % 86.4 % (42.8-82.8); PLATELET COUNT 284 K/MM3 (134-434); RDW 15.5 % (11.6-15.6); WHITE BLOOD COUNT 13.8 K/mm3 (4.0-10.0)
[2019-08-17 09:49] LABS: BLOOD UREA NITROGEN 17.1 mg/dL (7-18); CALCIUM 8.5 mg/dL (8.5-10.1); CREATININE 0.9 mg/dL (0.55-1.3); PHOSPHOROUS 3.6 mg/dL (2.5-4.9); POTASSIUM 4.5 mmol/L (3.5-5.1)
[2019-08-17] MEDS: ENOXAPARIN NA (PORCINE) 40 MG/0.4 ML DISP.SYRIN SQ SCH (10:24)
--- NOTE | 2019-08-17 11:43 | PN ---
Progress Note (short form) - Note Progress Note: PULMONARY VSS/AFEBRILE WANTS TO GO HOME APPEARS STABLE Constitutional: Yes: Mild Distress, Obese Eyes: Yes: Conjunctiva Clear, EOM Intact HENT: Yes: Atraumatic, Normocephalic Neck: Yes: Supple, Trachea Midline Cardiovascular: Yes: Regular Rate and Rhythm Respiratory: Yes: Cough, Diminished, On Nasal O2, SOB, SOB on Exertion, Tachypnea, Wheezes. No: Accessory Muscle Use, Rales, Rhonchi, Stridor ...Inspection: Yes: WNL ...Clubbing: No Gastrointestinal: Yes: Normal Bowel Sounds, Soft Renal/: Yes: WNL Musculoskeletal: Yes: WNL Extremities: Yes: WNL Edema: No Peripheral Pulses WNL: Yes Integumentary: Yes: WNL Neurological: Yes: WNL, Alert, Oriented ...Motor Strength: WNL Psychiatric: Yes: WNL, Alert, Oriented Labs: NOTED Imaging - Results Chest X-ray: Report Reviewed, Image Reviewed Problem List - Problems (1) Acute bronchospasm Code(s): J98.01 - ACUTE BRONCHOSPASM (2) Coughing Code(s): R05 - COUGH (3) Shortness of breath Code(s): R06.02 - SHORTNESS OF BREATH (4) Morbid obesity Code(s): E66.01 - MORBID (SEVERE) OBESITY DUE TO EXCESS CALORIES Medrol changed to prednisone BD TX standing and PRN Supplemental O2 as needed Monitor off ABX Sleep screen VTE prophylaxis No smoking Outpatient PFTs No objection to continuing treatment as an outpatient Emilia GARCIA MD
[2019-08-17] MEDS ORDERED: predniSONE 20 MG TABLET (UD) PO SCH ×3 (11:45→12:15)
--- NOTE | 2019-08-17 12:34 | DS ---
Physical Exam: SUBJECTIVE: Patient seen and examined OBJECTIVE: Vital Signs Period Temp Pulse Resp BP Sys/Dior Pulse Ox Last 24 Hr 98.2 F-99.1 F 74-104 18-20 112-119/56-68 91-95 PHYSICAL EXAM GENERAL: The patient is awake, alert, and fully oriented, in no acute distress. HEAD: Normal with no signs of trauma. EYES: PERRL, extraocular movements intact, sclera anicteric, conjunctiva clear. ENT: Ears normal, nares patent, oropharynx clear without exudates, moist mucous membranes. NECK: Trachea midline, full range of motion, supple. LUNGS: Breath sounds equal, clear to auscultation bilaterally, no wheezes, no crackles, no accessory muscle use. HEART: Regular rate and rhythm, S1, S2 without murmur, rub or gallop. ABDOMEN: Soft, nontender, nondistended, normoactive bowel sounds, no guarding, no rebound, no hepatosplenomegaly, no masses. EXTREMITIES: 2+ pulses, warm, well-perfused, no edema. NEUROLOGICAL: Cranial nerves II through XII grossly intact. Normal speech, gait not observed. PSYCH: Normal mood, normal affect. SKIN: Warm, dry, normal turgor, no rashes or lesions noted. LABS Laboratory Results - last 24 hr 08/16/19 08/17/19 08/17/19 18:20 08:46 08:46 WBC 13.8 H RBC 4.90 Hgb 12.5 Hct 38.5 MCV 78.5 L MCH 25.6 L MCHC 32.6 RDW 15.5 Plt Count 284 MPV 9.4 Absolute Neuts (auto) 11.9 H Neutrophils % 86.4 H D Lymphocytes % 10.3 D Monocytes % 2.9 L Eosinophils % 0.0 D Basophils % 0.4 Nucleated RBC % 0 Sodium 139 Potassium 4.5 Chloride 109 H Carbon Dioxide 22 Anion Gap 8 BUN 17.1 Creatinine 0.9 Est GFR (CKD-EPI)AfAm 94.01 Est GFR (CKD-EPI)NonAf 81.11 Random Glucose 144 H Calcium 8.5 Phosphorus 3.6 Urine Color Yellow Urine Appearance Clear Urine pH 5.5 Ur Specific Hodges 1.029 Urine Protein Negative Urine Glucose (UA) Negative Urine Ketones Trace H Urine Blood Negative Urine Nitrite Negative Urine Bilirubin Negative Urine Urobilinogen 0.2 Ur Leukocyte Esterase Negative HOSPITAL COURSE: Date of Admission:08/16/19 Date of Discharge: 08/17/19 This is a 39 year old woman with no significant medical history who presented to the ED with shortness of breath. 1. Acute bronchospasm/reactive airway disease - Chest x-ray unremarkable - D-dimer negative - Influenza A/B negative - treated with SoluMedrol, DuoNeb, albuterol nebs as needed - Pulmonary followed -steroids charged to Po and will taper 2. Probable MAYRA - Outpatient sleep study recommeded 3. Morbid obesity with BMI 49.4 4. Right flank pain, urinary frequency - UA (+) bacteria, (-) leukocyte esterase Medicallt cleared for discharge to home with follow up with PCP Minutes to complete discharge: 40 Discharge Summary Problems reviewed: Yes Reason For Visit: SHORTNESS OF BREATH,COUGH Current Active Problems Acute bronchospasm (Acute) Coughing (Acute) Morbid obesity (Acute) Morbid obesity with BMI of 45.0-49.9, adult (Acute) Prophylactic measure (Acute) Reactive airway disease (Acute) Shortness of breath (Acute) Hospital Course: HOSPITAL COURSE: Date of Admission:08/16/19 Date of Discharge: 08/17/19 This is a 39 year old woman with no significant medical history who presented to the ED with shortness of breath. 1. Acute bronchospasm/reactive airway disease - Chest x-ray unremarkable - D-dimer negative - Influenza A/B negative - treated with SoluMedrol, DuoNeb, albuterol nebs as needed - Pulmonary followed -steroids charged to Po and will taper 2. Probable MAYRA - Outpatient sleep study recommeded 3. Morbid obesity with BMI 49.4 4. Right flank pain, urinary frequency - UA (+) bacteria, (-) leukocyte esterase Medicallt cleared for discharge to home with follow up with PCP - Instructions Diet, Activity, Other Instructions: DISCHARGE YOUR VISIT You came to the hospital because you were having shortness of breath. You were given steroids and oxygen and improved. You will have steroids tapered over the next week. Take the steroids until completed. MEDICATIONS Please continue to take your home medications as prescribed. You can continue to use your inhaler. PREDNISONE TAPER 40 mg x 3 days 30 mg x 3 days 20 mg x 3 days 10 mg x 3 days DIET Continue your home diet ADDITIONAL CARE Please make an appointment to see your primary care provider, 2 week from today. You can see Dr Jeffries or dr Hamilton in the office to follow. ADDITIONAL INFORMATION Please call 911 or come directly to the emergency department if you experience unusual headache, vision change, shortness of breath, chest pain, numbness, tingling, loss of alertness/awareness, loss of function, unusual bleeding or any alarming symptoms. Thank you for allowing me to care for you. Maxime Julien, [facility], [facility] [phone] Referrals: George Jeffries MD [Staff Physician] - 2 Weeks (call for appointment) Kory Hamilton MD [Staff Physician] - 2 Weeks (call for appointment) Disposition: HOME - Home Medications Comprehensive Discharge Medication List: Ambulatory Orders Albuterol Sulfate Inhaler - [Ventolin HFA Inhaler -] 1 - 2 inh PO Q4H PRN #1 inhaler 08/17/19 predniSONE [Deltasone -] 0 mg PO DAILY #0 tablet 08/17/19 predniSONE [Deltasone -] 5 mg PO DAILY tablet 08/17/19 predniSONE [Deltasone -] 10 mg PO DAILY #30 tablet 08/17/19 predniSONE [Deltasone -] 20 mg PO DAILY tablet 08/17/19 predniSONE [Deltasone -] 30 mg PO DAILY tablet 08/17/19 predniSONE [Deltasone -] 40 mg PO DAILY tablet 08/17/19 predniSONE [Deltasone -] 40 mg PO DAILY tablet 08/17/19 Problem List - Problems (1) Reactive airway disease Code(s): J45.909 - UNSPECIFIED ASTHMA, UNCOMPLICATED (2) Prophylactic measure Code(s): Z29.9 - ENCOUNTER FOR PROPHYLACTIC MEASURES, UNSPECIFIED (3) Morbid obesity with BMI of 45.0-49.9, adult Code(s): E66.01 - MORBID (SEVERE) OBESITY DUE TO EXCESS CALORIES; Z68.42 - BODY MASS INDEX (BMI) 45.0-49.9, ADULT (4) Shortness of breath Code(s): R06.02 - SHORTNESS OF BREATH This patient is new to me today: Yes Date on this admission: 08/17/19 Emergency Visit: Yes ED Registration Date: 08/16/19 Care time: The patient presented to the Emergency Department on the above date and was hospitalized for further evaluation of their emergent condition. Critical Care patient: No - Discharge Referral Referred to [facility] Med P.C.: No
[2019-08-17 13:37] VITALS: BP 119/70; PULSE 88; TEMP 97.8
[2019-08-20] MEDS ORDERED: predniSONE 10 MG TABLET (UD) PO SCH (10:00)
[2019-08-23] MEDS ORDERED: predniSONE 20 MG TABLET (UD) PO SCH (10:00)
[2019-08-26] MEDS ORDERED: predniSONE 10 MG TABLET (UD) PO SCH (10:00)
[2019-08-29] MEDS ORDERED: predniSONE 5 MG TABLET (UD) PO SCH (10:00)
== END 2019-08-17 15:07 | disposition home or self-care (01) | DRG 202 ==
LOC: JER 01:21 → JERBED 03:43 → J5S 15:53
PROVIDERS: ADMIT Internal Medicine; ATTEND Nurse Practitioner Acute Care
DX: J45.901 Unspecified asthma with (acute) exacerbation (principal); Z68.42 Body mass index [BMI] 45.0-49.9, adult; E66.01 Morbid (severe) obesity due to excess calories; R06.02 Shortness of breath; R05 Cough; J06.9 Acute upper respiratory infection, unspecified
CPT/HCPCS: 36415; 71045-TC-FY; 80048; 80053; 81003; 82308; 82550; 82553; 83735; 84100; 84484; 84703; 85025; 85027; 85379; 87804; 93005; 93010; 94640; 99285-25; G0008; Q2036

== ENCOUNTER 2023-07-15 20:51 | Emergency (ER) | payer OTHER ==
[2023-07-15 20:56] VITALS: BP 128/81; TEMP 98.4; BMI 47.5
[2023-07-15] MEDS ORDERED: DEXAMETHASONE SOD PHOSPHATE 10 MG/1 ML VIAL PO ONE (21:03)
[2023-07-15] MEDS ORDERED: DEXAMETHASONE SOD PHOSPHATE 10 MG/1 ML VIAL ONE (21:06)
[2023-07-15] MEDS: ALBUTEROL SO4 2.5/IPRATROPIUM 0.5 INH SOL 3 ML VIAL.NEB. NEB SCH ×4 (21:08→22:01)
[2023-07-15] MEDS ORDERED: MAGNESIUM SULF 50% (8.12 MEQ/2 ML-1 GM VIAL) IVPB ONE (21:38)
[2023-07-15] MEDS ORDERED: MAGNESIUM SULFATE IN WATER 2 GM/50 ML IVPB IVPB ONE (21:42)
[2023-07-15] MEDS ORDERED: ACETAMINOPHEN 500 MG TABLET (FP) PO ONE (21:44)
[2023-07-15] MEDS ORDERED: FAMOTIDINE 20 MG/50 ML IVPB 20 MG/50 ML MG IVPB ONE (21:44)
[2023-07-15] MEDS ORDERED: ACETAMINOPHEN 325 MG TABLET (FP) ONE (21:45)
[2023-07-15] MEDS ORDERED: MAG HYDROX/AL HYDROX/SIMETH 30 ML UNIT-DOSE CUP PO ONE (21:45)
[2023-07-15] MEDS ORDERED: MAG HYDROX/AL HYDROX/SIMETH 30 ML UNIT-DOSE CUP ONE (21:45)
[2023-07-15] MEDS ORDERED: FAMOTIDINE 20 MG TABLET PO ONE (21:46)
[2023-07-15] MEDS ORDERED: FAMOTIDINE 20 MG TABLET ONE (21:46)
[2023-07-15 22:42] VITALS: PULSE 104; RESP 20
== END 2023-07-15 23:03 | disposition home or self-care (01) ==
LOC: JER 20:51
PROC: 3E033GC Introduction of Other Therapeutic Substance into Peripheral Vein, Percutaneous Approach (ICD-10-PCS; principal; 2023-07-15)
PROC: 3E033GC Introduction of Other Therapeutic Substance into Peripheral Vein, Percutaneous Approach (ICD-10-PCS; 2023-07-15)
DX: J45.909 Unspecified asthma, uncomplicated (principal); R06.02 Shortness of breath; R05.9 Cough, unspecified; M54.9 Dorsalgia, unspecified; Z20.822 Contact with and (suspected) exposure to COVID-19
CPT/HCPCS: 0241U-QW; 71045-TC-FY; 99284-25; J1100